=== PATIENT | male | born 1995 | race African-American/Black ===

== ENCOUNTER 2017-09-26 18:18 | Emergency (ER) | payer OTHER ==
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
[2017-09-27 01:47] VITALS: BP 139/78
== END 2017-09-26 20:11 | disposition home or self-care (01) ==
LOC: ED 18:18
DX: S80.212A Abrasion, left knee, initial encounter (principal); V89.2XXA Person injured in unspecified motor-vehicle accident, traffic, initial encounter; Y93.9 Activity, unspecified; Y92.9 Unspecified place or not applicable; Y99.9 Unspecified external cause status
CPT/HCPCS: 73562; 99283